=== PATIENT | female | born 1960 | race Caucasian/White ===

== ENCOUNTER → 2016-09-13 | Outpatient (REF) | payer BC ==
[2016-09-13 15:46] LABS: BASO % 0.2 % (0.0-1.0); EOS % 0.8 % (0.0-3.0); LARGE UNSTAINED CELL # 0.2 K/mm3 (0.0-0.4); LARGE UNSTAINED CELL % 3.1 % (0.0-4.0); LYMPH % 16.8 % (24.0-44.0); MEAN CORPUSCULAR HEMOGLOBIN 33.1 pg (27.0-33.0); MEAN CORPUSCULAR HGB CONC 33.9 g/dl (32.0-36.5); MEAN CORPUSCULAR VOLUME 97.8 fl (80.0-96.0); MONO # 0.4 K/mm3 (0.0-0.8); MONO % 6.1 % (0.0-5.0); NEUTROPHILS # 4.2 K/mm3 (1.8-7.7); PLATELET COUNT, AUTOMATED 211 k/mm3 (150-450); RED CELL DISTRIBUTION WIDTH 13.2 % (11.5-14.5); WHITE BLOOD COUNT 5.8 K/mm3 (4.0-10.0)
[2016-09-13 16:04] LABS: ALBUMIN 3.9 GM/DL (3.2-5.2); ALBUMIN/GLOBULIN RATIO 1.18 (1.00-1.93); BILIRUBIN,DIRECT 0.2 MG/DL (0.0-0.2); BILIRUBIN,TOTAL 0.7 MG/DL (0.2-1.0); TOTAL PROTEIN 7.2 GM/DL (6.4-8.2)
== END ==
LOC: M LABDRAW1 15:35
PROVIDERS: ATTEND Internal Medicine Gastroenterology
DX: K50.00 Crohn's disease of small intestine without complications (principal)

== ENCOUNTER → 2016-09-27 | Outpatient (REF) | payer BC ==
[2016-09-27 13:29] LABS: ALBUMIN 3.9 GM/DL (3.2-5.2); ALBUMIN/GLOBULIN RATIO 1.11 (1.00-1.93); BILIRUBIN,DIRECT 0.3 MG/DL (0.0-0.2); TOTAL PROTEIN 7.4 GM/DL (6.4-8.2)
== END ==
LOC: M LABDRAW1 11:43
PROVIDERS: ATTEND Internal Medicine Gastroenterology
DX: R10.11 Right upper quadrant pain (principal); K76.89 Other specified diseases of liver; R94.5 Abnormal results of liver function studies; K50.00 Crohn's disease of small intestine without complications

== ENCOUNTER → 2016-10-04 | Outpatient (REF) | payer BC ==
[2016-10-04 18:32] LABS: CREATININE FOR GFR 1.18 MG/DL (0.55-1.02); GLOMERULAR FILTRATION RATE 50.4 (>51)
== END ==
LOC: M LABDRAW1 15:46
PROVIDERS: ATTEND Internal Medicine Gastroenterology
DX: R10.11 Right upper quadrant pain (principal)

== ENCOUNTER → 2016-12-13 | Outpatient (REF) | payer BC ==
[2016-12-13 16:34] LABS: ALBUMIN 3.7 GM/DL (3.2-5.2); ALBUMIN/GLOBULIN RATIO 1.09 (1.00-1.93); BILIRUBIN,DIRECT 0.3 MG/DL (0.0-0.2); BILIRUBIN,TOTAL 0.9 MG/DL (0.2-1.0); TOTAL PROTEIN 7.1 GM/DL (6.4-8.2)
== END ==
LOC: M LABDRAW1 15:50
PROVIDERS: ATTEND Internal Medicine Gastroenterology
DX: K76.89 Other specified diseases of liver (principal); R94.5 Abnormal results of liver function studies; K50.00 Crohn's disease of small intestine without complications

== ENCOUNTER → 2017-02-05 | Outpatient (REF) | payer BC ==
[2017-02-05 19:45] LABS: ALBUMIN 3.6 GM/DL (3.2-5.2); ALBUMIN/GLOBULIN RATIO 1.13 (1.00-1.93); BILIRUBIN,DIRECT 0.2 MG/DL (0.0-0.2); BILIRUBIN,TOTAL 0.6 MG/DL (0.2-1.0); TOTAL PROTEIN 6.8 GM/DL (6.4-8.2)
== END ==
LOC: M LABDRAW1 17:46
PROVIDERS: ATTEND Internal Medicine Gastroenterology
DX: R10.11 Right upper quadrant pain (principal); K76.89 Other specified diseases of liver; R94.5 Abnormal results of liver function studies; K50.00 Crohn's disease of small intestine without complications

== ENCOUNTER → 2017-02-05 | Outpatient (REF) | payer BC ==
[2017-02-05 19:39] LABS: ALBUMIN 3.6 GM/DL (3.2-5.2); ALBUMIN/GLOBULIN RATIO 1.09 (1.00-1.93); BILIRUBIN,TOTAL 0.6 MG/DL (0.2-1.0); CALCIUM LEVEL 9.3 MG/DL (8.5-10.1); CREATININE FOR GFR 1.06 MG/DL (0.55-1.02); GLOMERULAR FILTRATION RATE 57.1 (>51); POTASSIUM SERUM 3.8 MEQ/L (3.5-5.1); TOTAL PROTEIN 6.9 GM/DL (6.4-8.2)
== END ==
LOC: M LABDRAW1 17:43
PROVIDERS: ATTEND Internal Medicine
DX: Q61.3 Polycystic kidney, unspecified (principal)

== ENCOUNTER → 2017-04-25 | Outpatient (REF) | payer BC ==
[2017-04-25 14:24] LABS: ALBUMIN 3.8 GM/DL (3.2-5.2); ALBUMIN/GLOBULIN RATIO 1.06 (1.00-1.93); BILIRUBIN,DIRECT 0.2 MG/DL (0.0-0.2); BILIRUBIN,TOTAL 0.7 MG/DL (0.2-1.0); TOTAL PROTEIN 7.4 GM/DL (6.4-8.2)
== END ==
LOC: M LABDRAW1 11:31
PROVIDERS: ATTEND Internal Medicine Gastroenterology
DX: R94.5 Abnormal results of liver function studies (principal); K76.89 Other specified diseases of liver

== ENCOUNTER → 2017-06-06 | Outpatient (CLI) | payer BC ==
[2017-06-06 18:13] LABS: FERRITIN 98 NG/ML (8-252)
[2017-06-06 18:18] LABS: BASO % 0.4 % (0.0-1.0); EOS # 0.1 10^3/uL (0.0-0.50); EOS % 0.9 % (0.0-3.0); IMMATURE GRANULOCYTE % 0.2 % (0-0); LYMPH # 0.9 10^3/uL (1.5-4.5); LYMPH % 15.8 % (24.0-44.0); MEAN CORPUSCULAR HEMOGLOBIN 31.5 pg (27.0-33.0); MEAN CORPUSCULAR HGB CONC 34.4 g/dl (32.0-36.5); MEAN CORPUSCULAR VOLUME 91.5 fl (80.0-96.0); MONO # 0.5 10^3/uL (0.0-0.8); NEUTROPHILS # 4.2 10^3/uL (1.8-7.7); NEUTROPHILS % 73.7 % (36.0-66.0); PLATELET COUNT, AUTOMATED 228 10^3/uL (150-450); WHITE BLOOD COUNT 5.7 10^3/uL (4.0-10.0)
[2017-06-10 00:06] LABS: ALPHA 1 ANTITRYPSIN 152 mg/dL (90-200)
== END ==
LOC: M SMT 13:09
PROVIDERS: ATTEND Internal Medicine Gastroenterology
DX: K50.00 Crohn's disease of small intestine without complications (principal); R94.5 Abnormal results of liver function studies; K76.89 Other specified diseases of liver

== ENCOUNTER → 2017-10-23 | Outpatient (REF) | payer BC ==
[2017-10-23 18:47] LABS: ALBUMIN 4.1 GM/DL (3.2-5.2); ALBUMIN/GLOBULIN RATIO 1.21 (1.00-1.93); ALKALINE PHOSPHATASE 118 U/L (45-117); ALT/SGPT 31 U/L (12-78); AST/SGOT 27 U/L (7-37); BILIRUBIN,DIRECT 0.3 MG/DL (0.0-0.2); GAMMA GLUTAMYLTRANSPEPTIDASE 138 U/L (5-55); TOTAL PROTEIN 7.5 GM/DL (6.4-8.2)
== END ==
LOC: M LABDRAW1 17:26
DX: R94.5 Abnormal results of liver function studies (principal); K76.89 Other specified diseases of liver
CPT/HCPCS: 82977

== ENCOUNTER → 2017-12-24 | Outpatient (REF) | payer BC ==
[2017-12-24 12:53] LABS: HEMATOCRIT 38.5 % (36.0-47.0); HEMOGLOBIN 13.3 g/dl (12.0-15.5); MEAN CORPUSCULAR HEMOGLOBIN 31.8 pg (27.0-33.0); MEAN CORPUSCULAR HGB CONC 34.5 g/dl (32.0-36.5); MEAN CORPUSCULAR VOLUME 92.1 fl (80.0-96.0); PLATELET COUNT, AUTOMATED 172 10^3/uL (150-450); RED BLOOD COUNT 4.18 10^6/uL (4.00-5.40); RED CELL DISTRIBUTION WIDTH 11.9 % (11.5-14.5); WHITE BLOOD COUNT 5.3 10^3/uL (4.0-10.0)
[2017-12-24 23:52] LABS: BLOOD UREA NITROGEN 18 MG/DL (7-18); CHLORIDE LEVEL 107 MEQ/L (98-107); CREATININE FOR GFR 1.13 MG/DL (0.55-1.30); GLOMERULAR FILTRATION RATE 52.8 (>51); GLUCOSE, FASTING 94 MG/DL (70-100); SODIUM LEVEL 143 MEQ/L (136-145)
[2017-12-24 23:53] LABS: ALBUMIN 3.8 GM/DL (3.2-5.2); ALBUMIN/GLOBULIN RATIO 1.19 (1.00-1.93); ALKALINE PHOSPHATASE 118 U/L (45-117); ALT/SGPT 34 U/L (12-78); ANION GAP 6 MEQ/L (8-16); AST/SGOT 29 U/L (7-37); BILIRUBIN,TOTAL 0.8 MG/DL (0.2-1.0); CARBON DIOXIDE LEVEL 30 MEQ/L (21-32)
[2017-12-25 00:11] LABS: TOTAL 25(OH) VITAMIN D 38.8 NG/ML (30.0-100.0)
== END ==
LOC: M SFHCPLAZ 08:44
DX: E53.8 Deficiency of other specified B group vitamins (principal); K50.90 Crohn's disease, unspecified, without complications; I10 Essential (primary) hypertension; M85.80 Other specified disorders of bone density and structure, unspecified site
CPT/HCPCS: 83735

== ENCOUNTER → 2018-02-23 | Outpatient (REF) | payer BC | LOC: M LAB REF 11:49 | DX: C44.612 Basal cell carcinoma of skin of right upper limb, including shoulder (principal) | CPT/HCPCS: 88305 ==

== ENCOUNTER → 2018-03-03 | Outpatient (REF) | payer BC ==
[2018-03-03 16:09] LABS: ALBUMIN 3.6 GM/DL (3.2-5.2); ALBUMIN/GLOBULIN RATIO 1.06 (1.00-1.93); ALKALINE PHOSPHATASE 108 U/L (45-117); ALT/SGPT 32 U/L (12-78); AST/SGOT 25 U/L (7-37); BILIRUBIN,DIRECT 0.2 MG/DL (0.0-0.2); BILIRUBIN,TOTAL 0.8 MG/DL (0.2-1.0); GAMMA GLUTAMYLTRANSPEPTIDASE 113 U/L (5-55)
== END ==
LOC: M LABDRAW1 15:41
DX: R94.5 Abnormal results of liver function studies (principal); K76.89 Other specified diseases of liver
CPT/HCPCS: 82977

== ENCOUNTER → 2018-06-17 | Outpatient (REF) | payer BC ==
[2018-06-17 16:15] LABS: HEMATOCRIT 41.1 % (36.0-47.0); HEMOGLOBIN 13.8 g/dl (12.0-15.5); MEAN CORPUSCULAR HEMOGLOBIN 30.7 pg (27.0-33.0); MEAN CORPUSCULAR HGB CONC 33.6 g/dl (32.0-36.5); MEAN CORPUSCULAR VOLUME 91.3 fl (80.0-96.0); PLATELET COUNT, AUTOMATED 220 10^3/uL (150-450); RED CELL DISTRIBUTION WIDTH 11.8 % (11.5-14.5); WHITE BLOOD COUNT 6.9 10^3/uL (4.0-10.0)
[2018-06-17 16:22] LABS: ALBUMIN/GLOBULIN RATIO 1.11 (1.00-1.93); ALKALINE PHOSPHATASE 135 U/L (45-117); ALT/SGPT 34 U/L (12-78); AST/SGOT 27 U/L (7-37); BILIRUBIN,DIRECT 0.2 MG/DL (0.0-0.2); BILIRUBIN,TOTAL 0.9 MG/DL (0.2-1.0); C REACTIVE PROTEIN QUANTITATIV 2.18 MG/DL (0.00-0.30); TOTAL PROTEIN 7.6 GM/DL (6.4-8.2)
[2018-06-17 16:28] LABS: TOTAL 25(OH) VITAMIN D 34.2 NG/ML (30.0-100.0)
[2018-06-17 17:36] LABS: VITAMIN B12 LEVEL > 2000 PG/ML (247-911)
== END ==
LOC: M LAB REF 15:45
DX: K50.00 Crohn's disease of small intestine without complications (principal); K76.89 Other specified diseases of liver; R94.5 Abnormal results of liver function studies
CPT/HCPCS: 82607

== ENCOUNTER → 2018-06-17 | Outpatient (REF) | payer BC ==
[2018-06-17 16:15] LABS: BLOOD UREA NITROGEN 19 MG/DL (7-18)
[2018-06-17 16:15] LABS: GLOMERULAR FILTRATION RATE 54.5 (>51)
== END ==
LOC: M LABDRAW1 15:37
DX: I10 Essential (primary) hypertension (principal)
CPT/HCPCS: 82565

== ENCOUNTER → 2018-11-11 | Outpatient (REF) | payer BC ==
[2018-11-11 14:04] LABS: ALBUMIN 3.9 GM/DL (3.2-5.2); BILIRUBIN,DIRECT 0.2 MG/DL (0.0-0.2); BILIRUBIN,TOTAL 0.8 MG/DL (0.2-1.0); TOTAL PROTEIN 6.9 GM/DL (6.4-8.2)
== END ==
LOC: M LABDRAW1 11:24
PROVIDERS: ATTEND Internal Medicine Gastroenterology
DX: K76.89 Other specified diseases of liver (principal); R94.5 Abnormal results of liver function studies

== ENCOUNTER → 2018-12-30 | Outpatient (REF) | payer BC ==
[2018-12-30 09:55] LABS: HEMATOCRIT 40.6 % (36.0-47.0); HEMOGLOBIN 14.1 g/dl (12.0-15.5); MEAN CORPUSCULAR HEMOGLOBIN 32.2 pg (27.0-33.0); MEAN CORPUSCULAR HGB CONC 34.7 g/dl (32.0-36.5); MEAN CORPUSCULAR VOLUME 92.7 fl (80.0-96.0); PLATELET COUNT, AUTOMATED 183 10^3/uL (150-450); RED BLOOD COUNT 4.38 10^6/uL (4.00-5.40); WHITE BLOOD COUNT 5.8 10^3/uL (4.0-10.0)
[2018-12-30 10:30] LABS: BILIRUBIN,TOTAL 0.7 MG/DL (0.2-1.0); CALCIUM LEVEL 9.5 MG/DL (8.5-10.1); CHOLESTEROL RISK RATIO 2.53 (<5); CREATININE FOR GFR 1.11 MG/DL (0.55-1.30); GLOMERULAR FILTRATION RATE 53.7 (>51); POTASSIUM SERUM 4.3 MEQ/L (3.5-5.1); TOTAL PROTEIN 7.3 GM/DL (6.4-8.2)
[2018-12-30 10:47] LABS: TOTAL 25(OH) VITAMIN D 40.6 NG/ML (30.0-100.0)
== END ==
LOC: M SFHCPLAZ 08:33
PROVIDERS: ATTEND Internal Medicine
DX: Z00.00 Encounter for general adult medical examination without abnormal findings (principal); I10 Essential (primary) hypertension; K50.90 Crohn's disease, unspecified, without complications; M85.80 Other specified disorders of bone density and structure, unspecified site; E53.8 Deficiency of other specified B group vitamins

== ENCOUNTER → 2019-07-07 | Outpatient (REF) | payer BC ==
[2019-07-07 16:10] LABS: CREATININE FOR GFR 1.2 MG/DL (0.55-1.30); GLOMERULAR FILTRATION RATE 49.1 (>51)
== END ==
LOC: M LABDRAW1 11:39
PROVIDERS: ATTEND Obstetrics & Gynecology Gynecology
DX: Z80.3 Family history of malignant neoplasm of breast (principal)

== ENCOUNTER → 2019-12-31 | Outpatient (REF) | payer BC ==
[2019-12-31 16:58] LABS: HEMATOCRIT 40.8 % (36.0-47.0); HEMOGLOBIN 14.1 g/dl (12.0-15.5); MEAN CORPUSCULAR HEMOGLOBIN 32.6 pg (27.0-33.0); MEAN CORPUSCULAR HGB CONC 34.6 g/dl (32.0-36.5); MEAN CORPUSCULAR VOLUME 94.4 fl (80.0-96.0); PLATELET COUNT, AUTOMATED 194 10^3/uL (150-450); RED BLOOD COUNT 4.32 10^6/uL (4.00-5.40); WHITE BLOOD COUNT 7.8 10^3/uL (4.0-10.0)
[2019-12-31 17:27] LABS: ALBUMIN 4.1 GM/DL (3.2-5.2); BILIRUBIN,DIRECT 0.3 MG/DL (0.0-0.2); BILIRUBIN,TOTAL 0.8 MG/DL (0.2-1.0); C REACTIVE PROTEIN QUANTITATIV 0.34 MG/DL (0.00-0.30); TOTAL PROTEIN 7.6 GM/DL (6.4-8.2)
[2019-12-31 17:34] LABS: TOTAL 25(OH) VITAMIN D 58.5 NG/ML (30.0-100.0)
== END ==
LOC: M LABDRAWC 15:59
PROVIDERS: ATTEND Internal Medicine Gastroenterology
DX: K50.00 Crohn's disease of small intestine without complications (principal); K76.89 Other specified diseases of liver; R94.5 Abnormal results of liver function studies

== ENCOUNTER → 2020-01-12 | Outpatient (REF) | payer BC ==
[2020-01-12 16:52] LABS: HEMATOCRIT 43.9 % (36.0-47.0); HEMOGLOBIN 14.7 g/dl (12.0-15.5); MEAN CORPUSCULAR HEMOGLOBIN 31.2 pg (27.0-33.0); MEAN CORPUSCULAR HGB CONC 33.5 g/dl (32.0-36.5); MEAN CORPUSCULAR VOLUME 93.2 fl (80.0-96.0); PLATELET COUNT, AUTOMATED 235 10^3/uL (150-450); RED BLOOD COUNT 4.71 10^6/uL (4.00-5.40); WHITE BLOOD COUNT 8.1 10^3/uL (4.0-10.0)
[2020-01-12 17:07] LABS: ALBUMIN 4.2 GM/DL (3.2-5.2); BILIRUBIN,TOTAL 1.1 MG/DL (0.2-1.0); CREATININE FOR GFR 1.17 MG/DL (0.55-1.30); GLOMERULAR FILTRATION RATE 50.4 (>51); PTH INTACT 33.7 PG/ML (18.5-88.0); THYROID STIMULATING HORMONE 1.33 uIU/ML (0.358-3.740); TOTAL PROTEIN 7.9 GM/DL (6.4-8.2)
== END ==
LOC: M SFHCCLAY 11:33
PROVIDERS: ATTEND Internal Medicine
DX: Z00.00 Encounter for general adult medical examination without abnormal findings (principal); K50.90 Crohn's disease, unspecified, without complications; I10 Essential (primary) hypertension; Q61.3 Polycystic kidney, unspecified

== ENCOUNTER → 2020-07-07 | Outpatient (REF) | payer BC ==
[2020-07-07 16:29] LABS: ALT/SGPT 39 U/L (12-78); BILIRUBIN,DIRECT 0.3 MG/DL (0.0-0.2); BILIRUBIN,TOTAL 1.1 MG/DL (0.2-1.0); C REACTIVE PROTEIN QUANTITATIV < 0.30 MG/DL (0.00-0.30); FERRITIN 57 NG/ML (8-252); HEMATOCRIT 40.8 % (36.0-47.0); HEMOGLOBIN 13.7 g/dl (12.0-15.5); IRON (FE) 158 UG/DL (50-170); MEAN CORPUSCULAR HGB CONC 33.6 g/dl (32.0-36.5); MEAN CORPUSCULAR VOLUME 92.3 fl (80.0-96.0); PERCENT SATURATION 42.2 % (13.2-45.0); PLATELET COUNT, AUTOMATED 195 10^3/uL (150-450); RED BLOOD COUNT 4.42 10^6/uL (4.00-5.40); TOTAL IRON BINDING CAPACITY 374 UG/DL (250-450); TOTAL PROTEIN 7.2 GM/DL (6.4-8.2)
[2020-07-07 16:34] LABS: VITAMIN B12 LEVEL 649 PG/ML (247-911)
== END ==
LOC: M LABDRAWC 15:43
PROVIDERS: ATTEND Internal Medicine Gastroenterology
DX: K50.00 Crohn's disease of small intestine without complications (principal); K82.8 Other specified diseases of gallbladder

== ENCOUNTER → 2020-07-17 | Outpatient (REF) | payer BC | LOC: M LAB REF 11:37 → M LABDRAWC 11:37 | PROVIDERS: ATTEND Specialist | DX: Z51.81 Encounter for therapeutic drug level monitoring (principal); Z79.899 Other long term (current) drug therapy ==

== ENCOUNTER → 2021-01-17 | Outpatient (REF) | payer BC ==
[2021-01-17 14:05] LABS: HEMATOCRIT 41.3 % (36.0-47.0); MEAN CORPUSCULAR HEMOGLOBIN 31.8 pg (27.0-33.0); MEAN CORPUSCULAR HGB CONC 33.9 g/dl (32.0-36.5); MEAN CORPUSCULAR VOLUME 93.9 fl (80.0-96.0); PLATELET COUNT, AUTOMATED 201 10^3/uL (150-450); WHITE BLOOD COUNT 8.1 10^3/uL (4.0-10.0)
[2021-01-17 14:33] LABS: BILIRUBIN,TOTAL 0.7 MG/DL (0.2-1.0); CHOLESTEROL RISK RATIO 2.341 (<5); CREATININE FOR GFR 1.19 MG/DL (0.55-1.30); GLOMERULAR FILTRATION RATE 49.3 (>45); MAGNESIUM LEVEL 2.2 MG/DL (1.8-2.4); POTASSIUM SERUM 4.5 MEQ/L (3.5-5.1); TOTAL PROTEIN 7.6 GM/DL (6.4-8.2)
[2021-01-17 14:37] LABS: PTH INTACT 38.2 PG/ML (18.5-88.0)
== END ==
LOC: M SFHCPLAZ 09:58
PROVIDERS: ATTEND Internal Medicine
DX: K50.90 Crohn's disease, unspecified, without complications (principal); I10 Essential (primary) hypertension; Q61.3 Polycystic kidney, unspecified

== ENCOUNTER → 2021-03-28 | Outpatient (CLI) | payer BC ==
[2021-03-28 17:09] LABS: BASO # 0.1 10^3/uL (0.0-0.2); BASO % 0.5 % (0.0-1.0); EOS # 0.3 10^3/uL (0.0-0.5); EOS % 2.1 % (0.0-3.0); HEMATOCRIT 41.6 % (36.0-47.0); HEMOGLOBIN 14.3 g/dl (12.0-15.5); LYMPH # 2.9 10^3/uL (1.5-5.0); LYMPH % 23.6 % (24.0-44.0); MEAN CORPUSCULAR HEMOGLOBIN 31.8 pg (27.0-33.0); MEAN CORPUSCULAR HGB CONC 34.4 g/dl (32.0-36.5); MEAN CORPUSCULAR VOLUME 92.7 fl (80.0-96.0); MONO % 8.1 % (2.0-8.0); NEUTROPHILS % 65.4 % (36.0-66.0); PLATELET COUNT, AUTOMATED 306 10^3/uL (150-450); RED BLOOD COUNT 4.49 10^6/uL (4.00-5.40); WHITE BLOOD COUNT 12.2 10^3/uL (4.0-10.0)
[2021-03-28 17:49] LABS: ALBUMIN 3.8 GM/DL (3.2-5.2); BILIRUBIN,TOTAL 0.6 MG/DL (0.2-1.0); C REACTIVE PROTEIN QUANTITATIV 6.26 MG/DL (0.00-0.30); CALCIUM LEVEL 9.7 MG/DL (8.8-10.2); CREATININE FOR GFR 1.14 MG/DL (0.55-1.30); GLOMERULAR FILTRATION RATE 51.8 (>45); POTASSIUM SERUM 4.6 MEQ/L (3.5-5.1); TOTAL PROTEIN 7.8 GM/DL (6.4-8.2)
== END ==
LOC: M PLALAB 14:42
PROVIDERS: ATTEND Physician Assistant
DX: R21 Rash and other nonspecific skin eruption (principal); L98.9 Disorder of the skin and subcutaneous tissue, unspecified

== ENCOUNTER → 2021-03-28 | Outpatient (REF) | payer BC | LOC: M SFHCPLAZ 16:48 | PROVIDERS: ATTEND Physician Assistant | DX: J02.9 Acute pharyngitis, unspecified (principal) ==

== ENCOUNTER → 2021-04-03 | Outpatient (CLI) | payer BC | LOC: M PLALAB 10:40 | PROVIDERS: ATTEND Physician Assistant | DX: R21 Rash and other nonspecific skin eruption (principal); L98.9 Disorder of the skin and subcutaneous tissue, unspecified ==

== ENCOUNTER → 2021-04-27 | Outpatient (CLI) | payer BC ==
--- NOTE | 2021-04-27 09:48 | REP ---
INDICATION: ERYTHEMA NODOSUM, R/O DVT,, INFLAMMED NODULES COMPARISON: None. TECHNIQUE: Hansen scale and color Doppler evaluation using linear high frequency transducer. FINDINGS: Ultrasound examination of the left lower extremity deep venous structures from the common femoral vein through the calf/ankle to include the peroneal, and tibial veins demonstrates normal compressibility flow and wave patterns in response to respiration and augmentation. There is no evidence for deep venous thrombosis. Contralateral CFV is patent and normal. IMPRESSION: No evidence for deep venous thrombosis. <Electronically signed by Delano Roberson > 04/27/21 0983
== END ==
LOC: M RAD 08:57
PROVIDERS: ATTEND Nurse Practitioner Family
DX: L52 Erythema nodosum (principal)

== ENCOUNTER → 2021-07-30 | Outpatient (CLI) | payer BC ==
[2021-07-30 15:24] LABS: HEMATOCRIT 41.2 % (36.0-47.0); HEMOGLOBIN 13.9 g/dl (12.0-15.5); MEAN CORPUSCULAR HEMOGLOBIN 31.4 pg (27.0-33.0); MEAN CORPUSCULAR HGB CONC 33.7 g/dl (32.0-36.5); PLATELET COUNT, AUTOMATED 190 10^3/uL (150-450); RED BLOOD COUNT 4.43 10^6/uL (4.00-5.40); WHITE BLOOD COUNT 12.2 10^3/uL (4.0-10.0)
[2021-07-30 15:44] LABS: ALBUMIN 3.8 GM/DL (3.2-5.2); BILIRUBIN,DIRECT 0.2 MG/DL (0.0-0.2); BILIRUBIN,TOTAL 0.7 MG/DL (0.2-1.0); C REACTIVE PROTEIN QUANTITATIV 0.6 MG/DL (0.00-0.30); PERCENT SATURATION 17.7 % (13.2-45.0); TOTAL PROTEIN 7.3 GM/DL (6.4-8.2)
== END ==
LOC: M PLALAB 12:54
PROVIDERS: ATTEND Internal Medicine Gastroenterology
DX: K50.00 Crohn's disease of small intestine without complications (principal)

== ENCOUNTER → 2021-11-21 | Outpatient (REF) | payer BC ==
[2021-11-21 13:27] LABS: HEMATOCRIT 40.3 % (36.0-47.0); HEMOGLOBIN 13.8 g/dl (12.0-15.5); MEAN CORPUSCULAR HGB CONC 34.2 g/dl (32.0-36.5); MEAN CORPUSCULAR VOLUME 90.6 fl (80.0-96.0); PLATELET COUNT, AUTOMATED 190 10^3/uL (150-450); RED BLOOD COUNT 4.45 10^6/uL (4.00-5.40); WHITE BLOOD COUNT 7.5 10^3/uL (4.0-10.0)
[2021-11-21 13:48] LABS: PERCENT SATURATION 38.3 % (13.2-45.0)
[2021-11-21 13:58] LABS: ATYPICAL LYMPH 10 % (0-5); BASOPHILS 1 % (0-1); EOSINOPHILS 4 % (0-3); LYMPHOCYTES 37 % (16-44); MONOCYTES 11 % (0-5); NEUTROPHILS 37 % (28-66); PLATELET ESTIMATE NORMAL (NORMAL)
== END ==
LOC: M LABDRAWC 11:15
PROVIDERS: ATTEND Internal Medicine Gastroenterology
DX: K50.80 Crohn's disease of both small and large intestine without complications (principal)

== ENCOUNTER → 2021-12-06 | Outpatient (REF) | payer BC ==
[2021-12-06 12:12] LABS: HEMATOCRIT 40.1 % (36.0-47.0); HEMOGLOBIN 13.9 g/dl (12.0-15.5); MEAN CORPUSCULAR HEMOGLOBIN 30.8 pg (27.0-33.0); MEAN CORPUSCULAR HGB CONC 34.7 g/dl (32.0-36.5); MEAN CORPUSCULAR VOLUME 88.9 fl (80.0-96.0); PLATELET COUNT, AUTOMATED 177 10^3/uL (150-450); RED BLOOD COUNT 4.51 10^6/uL (4.00-5.40); WHITE BLOOD COUNT 6.9 10^3/uL (4.0-10.0)
[2021-12-06 12:19] LABS: ALT/SGPT 34 U/L (12-78); BILIRUBIN,DIRECT 0.2 MG/DL (0.0-0.2); BILIRUBIN,TOTAL 0.7 MG/DL (0.2-1.0); C REACTIVE PROTEIN QUANTITATIV < 0.30 MG/DL (0.00-0.30); TOTAL PROTEIN 7.1 GM/DL (6.4-8.2)
== END ==
LOC: M LABDRAWC 11:47
PROVIDERS: ATTEND Internal Medicine Gastroenterology
DX: K50.80 Crohn's disease of both small and large intestine without complications (principal)

== ENCOUNTER → 2023-01-23 | Outpatient (CLI) | payer BC ==
[2023-01-23 14:26] LABS: APPEARANCE, URINE CLEAR (CLEAR); BACTERIA, URINE AUTO 1+ (NEGATIVE); BILIRUBIN, URINE AUTO NEGATIVE (NEGATIVE); BLOOD, URINE BLOOD 2+ (NEGATIVE); COLOR, URINE STRAW (YELLOW); GLUCOSE, URINE (UA) AUTO NEGATIVE (NEGATIVE); KETONE, URINE AUTO NEGATIVE (NEGATIVE); LEUKOCYTE ESTERASE, URINE AUTO 2+ (NEGATIVE); MUCUS, URINE SMALL (NEGATIVE); NITRITE, URINE AUTO NEGATIVE (NEGATIVE); PROTEIN, URINE AUTO 1+ mg/dL (NEGATIVE); RBC, URINE AUTO 6 /HPF (0-3); SPECIFIC GRAVITY URINE AUTO 1.005 (1.002-1.035); SQUAMOUS EPITHELIAL CELL UR AU 0 /HPF (0-6); UROBILINOGEN, URINE AUTO 0.2 mg/dL (0.0-2.0); WBC, URINE AUTO 22 /HPF (0-3)
[2023-01-23 14:39] LABS: CREATININE, URINE 30.1 MG/DL
[2023-01-23 15:17] LABS: HEMOGLOBIN 14.5 g/dl (12.0-15.5); MEAN CORPUSCULAR HEMOGLOBIN 32.4 pg (27.0-33.0); MEAN CORPUSCULAR HGB CONC 34.5 g/dl (32.0-36.5); PLATELET COUNT, AUTOMATED 196 10^3/uL (150-450); RED BLOOD COUNT 4.47 10^6/uL (4.00-5.40); WHITE BLOOD COUNT 13.1 10^3/uL (4.0-10.0)
[2023-01-23 15:40] LABS: C REACTIVE PROTEIN QUANTITATIV 7.1 MG/DL (<1.0)
[2023-01-23 15:42] LABS: BILIRUBIN,TOTAL 1.3 MG/DL (0.3-1.2); CALCIUM LEVEL 10.6 MG/DL (8.3-10.6); CHOLESTEROL RISK RATIO 1.93 (<5); CREATININE FOR GFR 1.11 MG/DL (0.55-1.30); FREE T4 1.09 NG/DL (0.89-1.76); HDL CHOLESTEROL 82.9 MG/DL (>40); LDL CHOLESTEROL 57.9 MG/DL (<100); NON-HDL-C 77.1 MG/DL; POTASSIUM SERUM 3.7 MMOL/L (3.5-5.1); THYROID STIMULATING HORMONE 1.234 uIU/ML (0.55-4.78); TOTAL 25(OH) VITAMIN D 40.9 NG/ML (20.0-100.0); TOTAL PROTEIN 7.6 G/DL (5.7-8.2)
[2023-01-23 17:58] LABS: HEMOGLOBIN A1c 5.3 % (4.0-6.0)
== END ==
LOC: M PLALAB 09:40
PROVIDERS: ATTEND Internal Medicine Hematology
DX: R39.9 Unspecified symptoms and signs involving the genitourinary system (principal); I10 Essential (primary) hypertension

== ENCOUNTER → 2023-02-03 | Outpatient (REF) | payer BC | LOC: M SFHCPLAZ 12:55 | PROVIDERS: ATTEND Internal Medicine Hematology | DX: N30.00 Acute cystitis without hematuria (principal) ==

== ENCOUNTER → 2023-09-10 | Outpatient (REF) | payer BC ==
[2023-09-10 12:31] LABS: HEMATOCRIT 40.9 % (36.0-47.0); HEMOGLOBIN 14.3 g/dl (12.0-15.5); MEAN CORPUSCULAR HEMOGLOBIN 32.8 pg (27.0-33.0); MEAN CORPUSCULAR VOLUME 93.8 fl (80.0-96.0); PLATELET COUNT, AUTOMATED 193 10^3/uL (150-450); RED BLOOD COUNT 4.36 10^6/uL (4.00-5.40); WHITE BLOOD COUNT 9.2 10^3/uL (4.0-10.0)
[2023-09-10 14:12] LABS: C REACTIVE PROTEIN QUANTITATIV < 0.40 MG/DL (<1.0)
[2023-09-10 14:13] LABS: ALBUMIN 4.2 G/DL (3.2-5.2); ALKALINE PHOSPHATASE 111 U/L (46-116); ALT/SGPT 33 U/L (7.0-40); AST/SGOT 28 U/L (<34); BILIRUBIN,DIRECT 0.3 MG/DL (<0.4); TOTAL 25(OH) VITAMIN D 68.4 NG/ML (20.0-100.0); TOTAL IRON BINDING CAPACITY 358 UG/DL (250-425); TOTAL PROTEIN 7.1 G/DL (5.7-8.2)
[2023-09-10 14:14] LABS: FERRITIN 44.1 NG/ML (7.3-270.7); IRON (FE) 123 UG/DL (50-170); PERCENT SATURATION 34.4 % (13.2-45.0); VITAMIN B12 LEVEL 727 PG/ML (211-911)
== END ==
LOC: M LABDRAWC 12:08
PROVIDERS: ATTEND Internal Medicine Gastroenterology
DX: K50.80 Crohn's disease of both small and large intestine without complications (principal)

== ENCOUNTER → 2024-08-11 | Outpatient (REF) | payer BC ==
[2024-08-11 11:31] LABS: HEMATOCRIT 41.6 % (36.0-47.0); HEMOGLOBIN 14.4 g/dl (12.0-15.5); MEAN CORPUSCULAR HEMOGLOBIN 31.8 pg (27.0-33.0); MEAN CORPUSCULAR HGB CONC 34.6 g/dl (32.0-36.5); MEAN CORPUSCULAR VOLUME 91.8 fl (80.0-96.0); PLATELET COUNT, AUTOMATED 201 10^3/uL (150-450); RED BLOOD COUNT 4.53 10^6/uL (4.00-5.40); WHITE BLOOD COUNT 10.7 10^3/uL (4.0-10.0)
[2024-08-11 11:36] LABS: ALBUMIN 4.3 G/DL (3.2-5.2); ALKALINE PHOSPHATASE 100 U/L (35-104); ALT/SGPT 29 U/L (7.0-40); AST/SGOT 25 U/L (<34); BILIRUBIN,DIRECT 0.3 MG/DL (<0.4); BILIRUBIN,TOTAL 0.9 MG/DL (0.3-1.2); C REACTIVE PROTEIN QUANTITATIV < 0.50 MG/DL (<1.0); IRON (FE) 136 UG/DL (50-170); PERCENT SATURATION 38.5 % (13.2-45.0); TOTAL 25(OH) VITAMIN D 83.6 NG/ML (20.0-100.0); TOTAL IRON BINDING CAPACITY 353 UG/DL (250-425); TOTAL PROTEIN 7.4 G/DL (5.7-8.2)
[2024-08-11 11:37] LABS: FERRITIN 38.1 NG/ML (7.3-270.7); VITAMIN B12 LEVEL 757 PG/ML (211-911)
== END ==
LOC: M LABDRAWC 10:50
PROVIDERS: ATTEND Internal Medicine Gastroenterology
DX: K50.80 Crohn's disease of both small and large intestine without complications (principal)

== ENCOUNTER → 2024-08-12 | Outpatient (REF) | payer BC | LOC: M LAB REF 15:34 | PROVIDERS: ATTEND Dermatology | DX: T14.8XXA Other injury of unspecified body region, initial encounter (principal) ==

== ENCOUNTER → 2024-08-27 | Outpatient (CLI) | payer BC ==
[~2024-08-27] MED LIST: ALIG4CAP3 PO; ALLE180T33 PO; CYAN1000VL IM; D3 H2000 PO; FLUT15.820 NARES; FOLI1TAB11 PO; HUMI40KI2 SC; LOSA50TA5 PO; THERTAB52 PO
== END ==
LOC: M ONCR 12:55
PROVIDERS: ATTEND General Practice
DX: C44.01 Basal cell carcinoma of skin of lip (principal); Z80.3 Family history of malignant neoplasm of breast; Z91.041 Radiographic dye allergy status; Z79.899 Other long term (current) drug therapy; Z79.51 Long term (current) use of inhaled steroids; Z90.49 Acquired absence of other specified parts of digestive tract; Z79.620 Long term (current) use of immunosuppressive biologic

== ENCOUNTER 2024-09-14 11:01 | Outpatient (RCR) | payer BC | END 2024-09-24 | LOC: M ONCR 11:01 | PROVIDERS: ATTEND General Practice | DX: Z51.0 Encounter for antineoplastic radiation therapy (principal); C44.01 Basal cell carcinoma of skin of lip ==

== ENCOUNTER 2024-10-18 09:00 | Outpatient (RCR) | payer BC ==
[2024-10-18] MEDS ORDERED: AMOX875T2 PO (09:16)
[2024-10-18] MEDS ORDERED: LIDO15SO8 PO (09:16)
[2024-10-19] MEDS ORDERED: OXYC1TAB23 PO (19:15)
[2024-10-19] MEDS ORDERED: ONDA-282 PO (20:32)
== END 2024-10-25 ==
LOC: M ONCR 09:00
PROVIDERS: ATTEND General Practice
DX: Z51.0 Encounter for antineoplastic radiation therapy (principal); C44.01 Basal cell carcinoma of skin of lip

== ENCOUNTER 2024-10-19 13:46 | Emergency (ER) | payer BC ==
[~2024-10-19] VITALS: Ht 157.5 cm; Wt 66.9 kg
[~2024-10-19 13:46] MED LIST changes: +AMOX875T2 PO; +LIDO15SO8 PO
[2024-10-19] MEDS: OXYMETAZOLINE 0.05% NASAL SPRAY ONE (17:46)
[2024-10-19 18:17] LABS: HEMATOCRIT 40.1 % (36.0-47.0); MEAN CORPUSCULAR HEMOGLOBIN 32.1 pg (27.0-33.0); MEAN CORPUSCULAR HGB CONC 34.9 g/dl (32.0-36.5); PLATELET COUNT, AUTOMATED 298 10^3/uL (150-450); RED BLOOD COUNT 4.36 10^6/uL (4.00-5.40); WHITE BLOOD COUNT 17.6 10^3/uL (4.0-10.0)
[2024-10-19] MEDS: ACETAMINOPHEN 500 MG TAB PO ONE (18:42)
[2024-10-19 18:43] LABS: ATYPICAL LYMPH 5 % (0-5); BASOPHILS 1 % (0-1); LYMPHOCYTES 44 % (16-44); MONOCYTES 6 % (0-5); NEUTROPHILS 44 % (28-66)
[2024-10-19 18:45] LABS: PLATELET ESTIMATE NORMAL (NORMAL)
[2024-10-19] MEDS ORDERED: OXYC1TAB23 PO (19:15)
[2024-10-19] MEDS: oxyCODONE 5MG TAB PO ONE (19:22)
[2024-10-19] MEDS ORDERED: ONDA-282 PO (20:32)
[2024-10-19 20:39] VITALS: BP 149/71; TEMP 98.9; O2SAT 100
[2024-10-19] MEDS: ONDANSETRON 4MG TAB PO ONE (20:47)
[2024-10-19] MEDS: OXYCODONE/APAP 5MG/325MG(HOME DOSE PACK) PO ONE (20:48)
== END 2024-10-19 21:08 | disposition home or self-care (01) ==
LOC: M ED 13:46
DX: R04.0 Epistaxis (principal); I10 Essential (primary) hypertension; Z85.828 Personal history of other malignant neoplasm of skin; Z87.19 Personal history of other diseases of the digestive system; Z79.899 Other long term (current) drug therapy; Z91.041 Radiographic dye allergy status

== ENCOUNTER → 2024-11-02 | Outpatient (CLI) | payer BC ==
[~2024-11-02] MED LIST changes: +ONDA-282 PO; +OXYC1TAB23 PO
== END ==
LOC: M ONCR 07:55
PROVIDERS: ATTEND General Practice
DX: R04.0 Epistaxis (principal); C44.01 Basal cell carcinoma of skin of lip; Z92.3 Personal history of irradiation

== ENCOUNTER → 2024-11-16 | Outpatient (CLI) | payer BC | LOC: M ONCR 08:54 | PROVIDERS: ATTEND General Practice | DX: C44.01 Basal cell carcinoma of skin of lip (principal); Z92.3 Personal history of irradiation ==

== ENCOUNTER → 2025-02-28 | Outpatient (CLI) | payer BC ==
[2025-02-28 15:23] LABS: BASO # 0.0 10^3/uL (0.0-0.2); BASO % 0.4 % (0.0-1.0); EOS # 0.1 10^3/uL (0.0-0.5); EOS % 1.3 % (0.0-3.0); LYMPH # 5.4 10^3/uL (1.5-5.0); LYMPH % 53.1 % (24.0-44.0); MONO # 0.5 10^3/uL (0.0-0.8); MONO % 5.3 % (2.0-8.0); NEUTROPHILS # 4.1 10^3/uL (1.5-8.5); NEUTROPHILS % 39.7 % (36.0-66.0); PLATELET COUNT, AUTOMATED 227 10^3/uL (150-450)
[2025-02-28 17:25] LABS: APPEARANCE, URINE CLEAR (CLEAR); BACTERIA, URINE AUTO NEGATIVE (NEGATIVE); BILIRUBIN, URINE AUTO NEGATIVE (NEGATIVE); BLOOD, URINE BLOOD NEGATIVE (NEGATIVE); GLUCOSE, URINE (UA) AUTO NEGATIVE (NEGATIVE); KETONE, URINE AUTO NEGATIVE (NEGATIVE); LEUKOCYTE ESTERASE, URINE AUTO NEGATIVE (NEGATIVE); NITRITE, URINE AUTO NEGATIVE (NEGATIVE); PROTEIN, URINE AUTO NEGATIVE (NEGATIVE); RBC, URINE AUTO 1 /HPF (0-3); SPECIFIC GRAVITY URINE AUTO 1.008 (1.002-1.035); SQUAMOUS EPITHELIAL CELL UR AU 1 /HPF (0-6); UROBILINOGEN, URINE AUTO 0.2 mg/dL (0.0-2.0); WBC, URINE AUTO 0 /HPF (0-3)
== END ==
LOC: M PLALAB 14:22
PROVIDERS: ATTEND Student in an Organized Health Care Education/Training Program
DX: R10.2 Pelvic and perineal pain (principal)

== ENCOUNTER → 2025-03-02 | Outpatient (CLI) | payer BC ==
[2025-03-02 17:43] LABS: BASO # 0.1 10^3/uL (0.0-0.2); BASO % 0.5 % (0.0-1.0); EOS # 0.2 10^3/uL (0.0-0.5); EOS % 2.0 % (0.0-3.0); LYMPH # 5.7 10^3/uL (1.5-5.0); LYMPH % 54.2 % (24.0-44.0); MONO # 0.5 10^3/uL (0.0-0.8); MONO % 5.0 % (2.0-8.0); NEUTROPHILS # 4.0 10^3/uL (1.5-8.5); NEUTROPHILS % 38.0 % (36.0-66.0); PLATELET COUNT, AUTOMATED 235 10^3/uL (150-450)
[2025-03-02 20:33] LABS: ALT/SGPT 59 U/L (7.0-40); AST/SGOT 56 U/L (<34); CALCIUM LEVEL 9.8 MG/DL (8.3-10.6); CARBON DIOXIDE LEVEL 27 MMOL/L (20-31); CHLORIDE LEVEL 102 MMOL/L (98-107); CHOLESTEROL LEVEL 157 MG/DL (<200); CHOLESTEROL RISK RATIO 2.78 (<5); CREATININE FOR GFR 1.15 MG/DL (0.55-1.30); CREATININE, URINE 30.6 MG/DL; GLOMERULAR FILTRATION RATE 53.2 (>45); IRON (FE) 34 UG/DL (50-170); LDL CHOLESTEROL 51.8 MG/DL (<100); MAGNESIUM LEVEL 1.7 MG/DL (1.8-2.4); MALB URINE SIEMENS 15.0 MG/L; MAU/CREAT RATIO 49.0 MCG/MG (0.0-30.0); NON-HDL-C 100.6 MG/DL; PERCENT SATURATION 8.2 % (13.2-45.0); POTASSIUM SERUM 4.0 MMOL/L (3.5-5.1); SODIUM LEVEL 140 MMOL/L (136-145); TOTAL 25(OH) VITAMIN D 78.9 NG/ML (20.0-100.0); TRIGLYCERIDES LEVEL 244 MG/DL (<150); VITAMIN B12 LEVEL 785 PG/ML (211-911)
[2025-03-03 01:13] LABS: ESTIMATED AVERAGE GLUCOSE 117.0 MG/DL (60-110)
== END ==
LOC: M PLALAB 14:24
PROVIDERS: ATTEND Student in an Organized Health Care Education/Training Program
DX: Z00.00 Encounter for general adult medical examination without abnormal findings (principal); D64.9 Anemia, unspecified; D72.820 Lymphocytosis (symptomatic)

== ENCOUNTER → 2025-04-06 | Outpatient (CLI) | payer BC ==
[2025-04-06 14:21] LABS: PLATELET COUNT, AUTOMATED 247 10^3/uL (150-450)
[2025-04-06 14:34] LABS: ALT/SGPT 40.0 U/L (7.0-40); AST/SGOT 47.0 U/L (<34); CALCIUM LEVEL 9.7 MG/DL (8.3-10.6); CARBON DIOXIDE LEVEL 28.0 MMOL/L (20-31); CHLORIDE LEVEL 106.0 MMOL/L (98-107); CHOLESTEROL LEVEL 166.0 MG/DL (<200); CHOLESTEROL RISK RATIO 2.37 (<5); CREATININE FOR GFR 1.2 MG/DL (0.55-1.30); GLOMERULAR FILTRATION RATE 50.6 (>45); LDL CHOLESTEROL 69.2 MG/DL (<100); NON-HDL-C 96.0 MG/DL; POTASSIUM SERUM 4.2 MMOL/L (3.5-5.1); SODIUM LEVEL 143.0 MMOL/L (136-145); TRIGLYCERIDES LEVEL 134.0 MG/DL (<150)
[2025-04-06 14:49] LABS: CREATININE, URINE 28.4 MG/DL; MALB URINE SIEMENS 16.0 MG/L; MAU/CREAT RATIO 56.3 MCG/MG (0.0-30.0)
== END ==
LOC: M PLALAB 09:36
PROVIDERS: ATTEND Family Medicine
DX: D64.9 Anemia, unspecified (principal); Q61.3 Polycystic kidney, unspecified; I10 Essential (primary) hypertension

== ENCOUNTER → 2025-04-06 | Outpatient (REF) | payer BC | LOC: M SFHCPLAZ 09:05 | PROVIDERS: ATTEND Family Medicine | DX: D64.9 Anemia, unspecified (principal); Q61.3 Polycystic kidney, unspecified; Z53.9 Procedure and treatment not carried out, unspecified reason ==

== ENCOUNTER → 2025-05-04 | Outpatient (CLI) | payer BC | LOC: M WHC 09:45 | PROVIDERS: ATTEND Family Medicine | DX: M85.80 Other specified disorders of bone density and structure, unspecified site (principal); Z78.0 Asymptomatic menopausal state ==